=== PATIENT | female | born 1980 | race Caucasian/White ===

== ENCOUNTER 2016-12-17 10:52 | Observation (INO) | payer OTHER ==
[~2016-12-17] VITALS: Ht 162.6 cm; Wt 59.5 kg
[2016-12-17] MEDS ORDERED: SOD CHLORIDE 0.9% 1,000 ML IV STA (14:32)
[2016-12-17 14:51] LABS: ADD SCAN DIFF NO
[2016-12-17 14:54] LABS: BASOPHILS % 0.4 % (0.0-2.0); HEMATOCRIT 35.9 % (37.0-47.0); HEMOGLOBIN 10.9 g/dl (12.0-16.0); LYMPHOCYTES # 2.2 10^3/ul (0.8-2.9); LYMPHOCYTES % 20.4 % (15.0-51.0); MEAN CORPUSCULAR HEMOGLOBIN 25.9 pg (29.0-33.0); MEAN CORPUSCULAR HGB CONC 30.4 g/dl (32.0-37.0); MEAN CORPUSCULAR VOLUME 85.3 fl (82.0-101.0); MEAN PLATELET VOLUME 8.9 fl (7.4-10.4); MONOCYTE # 0.5 10^3/ul (0.3-0.9); MONOCYTES % 4.9 % (0.0-11.0); NEUTROPHIL # 7.8 10^3/ul (1.6-7.5); NEUTROPHILS % 73.9 % (39.0-77.0); PLATELET COUNT 396 10^3/UL (140-415); RED BLOOD COUNT 4.21 10^6/ul (4.20-5.40); RED CELL DISTRIBUTION WIDTH 14.6 % (11.5-14.5); WHITE BLOOD COUNT 10.6 10^3/ul (4.8-10.8)
--- NOTE | 2016-12-17 15:02 | RADRPT ---
PROCEDURE: XR Chest. CLINICAL INDICATION: Syncope. TECHNIQUE: PA and Lateral views of the chest were obtained. COMPARISON: No. FINDINGS: The soft tissues are normal. The bony elements are normal. The heart, cardiomediastinal silhouette and hilar structures are normal. The pulmonary vasculature is normal. There is a left-sided aorta. The lungs are clear. The costophrenic angles are normal. IMPRESSION: 1. Normal chest x-ray. RPTAT:AAJJ Physician Amita Date Time Electronically viewed and signed by Brad Ochoa Physician on 12/17/2016 15:02 HEATHER/
[2016-12-17 15:03] LABS: CHLORIDE 103 mmol/L (97-110)
[2016-12-17 15:04] LABS: INR 1.01; POTASSIUM 4.4 mmol/L (3.5-5.1); PROTIME 13.3 Sec (12.2-14.2); SODIUM 140 mmol/L (135-144)
[2016-12-17 15:05] LABS: PARTIAL THROMBOPLASTIN TIME 25.9 Sec (25.0-35.0)
--- NOTE | 2016-12-17 15:05 | RADRPT ---
PROCEDURE: CT Brain without contrast. CLINICAL INDICATION: Patient experiencing Syncope. TECHNIQUE: A CT of the brain was performed on a multi-slice CT scanner utilizing axial imaging fro m the skull base through the vertex without IV contrast. Multiplanar reformatted images were made. Images were reviewed on a PACS workstation. The CTDIvol is 45.01 mGy and the DLP is 630.2 mGycm. One or more of the following post reduction techniques were used: Automated exposure control. Adjustment of the mA and/or kV according to patient's size. Use of iterative reconstruction technique. COMPARISON: None FINDINGS: The sulcal gyral pattern is unremarkable without evidence of effacement. The perea-white matter diff erentiation is intact. No masses, edema or shift is identified. There are no intraparenchymal or extraaxial fluid collecti ons. The visualized paranasal sinuses and mastoid air cells are well-aerated. The skull base and calvari um are intact. IMPRESSION: No acute intracranial abnormalities are identified. RPTAT:AAJJ Physician Ash Date Time Electronically viewed and signed by Physician Ash on 12/17/2016 15:05 ELY/
[2016-12-17 15:06] LABS: ANION GAP 17 (8-16); CARBON DIOXIDE 24 mmol/L (21-31); CREATININE 0.54 mg/dl (0.44-1.00)
[2016-12-17 15:07] LABS: BLOOD UREA NITROGEN 11 mg/dl (7-20); CALCIUM 9.8 mg/dl (8.4-10.2); GLUCOSE 89 mg/dl (70-220)
[2016-12-17 15:10] LABS: D-DIMER < 220.00 ng/ml (<460)
[2016-12-17 15:27] LABS: TROPONIN-I < 0.012 ng/ml (0.00-0.12)
[2016-12-17] MEDS ORDERED: ASPIRIN 81 MG TAB PO ONE (15:30)
--- NOTE | 2016-12-17 16:06 | ERA ---
ER Documentation Chief Complaint Date/Time DATE: 12/17/16 TIME: 16:03 Chief Complaint FAINTED 3-TIMES YESTERDAY. C/O CP & HEAD ACHE. HPI 36-year-old female no past medical history who presents the emergency room with syncope. The patient gives a prolonged history that appears on Sunday at 1 AM she had 3 [id number] episodes of syncope. She states that she got up from the table dinner went to the bathroom. She started to feel lightheaded and then woke up on the ground. Since then she has been having a dull throbbing headache. She denies a prodrome of headache, no sudden onset of headache and this is not the worst headache of her life. Shortly after the patient was walking with her friend and again had a prodrome and had a syncopal episode. Again shortly after that when she had a third episode of syncope. The patient refused to be evaluated at that time. She denies any alcohol abuse, she denies alcohol intoxication or any drug abuse. The patient also describes chest pain. She describes it as pressure-like and squeezing for approximately 3-7 days. She denies exertional symptoms, no pleuritic pain, no back pain. ROS All systems reviewed and are negative except as per history of present illness. Medications Home Meds No Active Prescriptions or Reported Meds Allergies Allergies: Coded Allergies: No Known Allergy (Unverified , 12/17/16) PMhx/Soc History of Surgery: No Anesthesia Reaction: No Hx Neurological Disorder: No Hx Respiratory Disorders: No Hx Cardiac Disorders: No Hx Psychiatric Problems: No Hx Miscellaneous Medical Probl: No Hx Alcohol Use: No Hx Substance Use: No Hx Tobacco Use: No Smoking Status: Never smoker FmHx Family History: No diabetes Physical Exam Vitals Vital Signs Date Time Temp Pulse Resp B/P Pulse Ox O2 Delivery O2 Flow Rate FiO2 12/17/16 14:30 76 13 130/85 100 Room Air 12/17/16 11:08 98.6 74 16 132/86 99 Physical Exam General: Well developed, well nourished, no acute distress Head: Normocephalic, atraumatic. Eyes: Pupils equally reactive, EOM intact ENT: Moist mucous membranes Neck: Supple, no lymphadenopathy Respiratory: Lungs clear bilaterally, no distress Cardiovascular: RRR, no murmurs, rubs, or gallops Abdominal: Soft, non-tender, non-distended, no peritoneal signs : Deferred MSK: No edema, no unilateral swelling, 5/5 strength, no pulse deficits Neurologic: Alert and oriented, moving all extremities, normal speech, no focal weakness, no cerebellar signs Skin: No rash Psych: Normal mood Result Diagram: 12/17/16 1445 12/17/16 1445 Results 24 hrs Laboratory Tests Test 12/17/16 14:43 12/17/16 14:45 Bedside Glucose 82mg/dL White Blood Count 10.610^3/ul Red Blood Count 4.2110^6/ul Hemoglobin 10.9g/dl Hematocrit 35.9% Mean Corpuscular Volume 85.3fl Mean Corpuscular Hemoglobin 25.9pg Mean Corpuscular Hemoglobin Concent 30.4g/dl Red Cell Distribution Width 14.6% Platelet Count 78601^3/UL Mean Platelet Volume 8.9fl Neutrophils % 73.9% Lymphocytes % 20.4% Monocytes % 4.9% Eosinophils % 0.0% Basophils % 0.4% Nucleated Red Blood Cells % 0.0/100WBC Neutrophils # 7.810^3/ul Lymphocytes # 2.210^3/ul Monocytes # 0.510^3/ul Eosinophils # 0.010^3/ul Basophils # 0.010^3/ul Nucleated Red Blood Cells # 0.010^3/ul Prothrombin Time 13.3Sec Prothrombin Time Ratio 1.0 INR International Normalized Ratio 1.01 Activated Partial Thromboplast Time 25.9Sec D-Dimer < 220.00ng/ml D-Dimer Comment Sodium Level 140mmol/L Potassium Level 4.4mmol/L Chloride Level 103mmol/L Carbon Dioxide Level 24mmol/L Anion Gap 17 Blood Urea Nitrogen 11mg/dl Creatinine 0.54mg/dl Glucose Level 89mg/dl Calcium Level 9.8mg/dl Troponin I < 0.012ng/ml Serum HCG, Qualitative NEGATIVE Ethyl Alcohol Level < 10.0mg/dl Current Medications Medications (Trade) Dose Ordered Sig/Toby Route PRN Reason Start Time Stop Time Status Last Admin Dose Admin Sodium Chloride (NS) 1,000 ml @ 1,000 mls/hr Q1H STAT IV 12/17/16 14:32 12/17/16 15:31 DC 12/17/16 15:22 Aspirin (Aspirin) 324 mg ONCE ONCE PO 12/17/16 15:30 12/17/16 15:44 DC 12/17/16 15:58 Ondansetron HCl (Zofran Inj) 4 mg ER BRIDGE PRN IV NAUSEA AND/OR VOMITING 12/17/16 17:00 12/18/16 16:59 Acetaminophen 650 mg 650 mg ER BRIDGE PRN PO MILD PAIN/FEVER 12/17/16 17:00 12/18/16 16:59 Sodium Chloride (NS) 1,000 ml @ 100 mls/hr Q10H IV 12/17/16 17:02 UNV IV Flush (NS 3 ml) 3 ml PER PROTOCOL IV 12/17/16 17:30 UNV Ondansetron HCl (Zofran Inj) 4 mg Q6H PRN IV NAUSEA AND/OR VOMITING 12/17/16 17:30 UNV Aspirin (Aspirin) 81 mg DAILY PO 12/18/16 09:00 12/18/16 09:00 DC Acetaminophen (Tylenol Tab) 650 mg Q6H PRN PO PAIN LEVEL 1-3 OR FEVER 12/17/16 17:30 UNV Docusate Sodium (Colace) 100 mg Q12H PRN PO CONSTIPATION 12/17/16 17:30 UNV Magnesium Hydroxide (Milk Of Mag) 30 ml DAILY PRN PO CONSTIPATION 12/17/16 17:30 UNV Bisacodyl (Dulcolax Supp) 10 mg DAILY PRN AR CONSTIPATION 12/17/16 17:30 UNV Famotidine (Pepcid) 20 mg Q12 PO 12/17/16 21:00 UNV Enoxaparin Sodium (Lovenox) 40 mg DAILY SC 12/18/16 09:00 UNV Procedures/MDM EKG, MONITORS, & DIAGNOSTIC IMAGING: EKG: I reviewed and interpreted a 12-lead EKG. Rhythm: Normal sinus rhythm Ectopy: None Intervals: No abnormalities ST segments: No elevations or depressions T waves: No contiguous inversions Chest x-ray: I reviewed and interpreted a 1 view of the chest Mediastinum: No enlargement Cardiac silhouette: No cardiomegaly Airspace: Clear lung farrell bilaterally without evidence of pneumothorax Bones: No evidence of fracture CT brain: No acute process per radiology read LAB INTERPRETATION: Negative troponin, negative d-dimer, negative ECG MEDICAL DECISION MAKING: The patient presents with an episode of 3 back to back to back episodes of syncope. The patient is a somewhat limited historian. She does have a headache and chest pain. Her headache appears to have started after these episodes possibly related to head injury or trauma. She did not describe a prodrome of headache. She has had greater than 24 hours of symptoms. I do not believe her symptoms are consistent with subarachnoid hemorrhage. This is not the worst headache of her life and she has a nonfocal neurologic examination. I do not believe that lumbar puncture is necessary at this time. The patient also reports chest pain of unclear etiology. Consider possible ACS versus arrhythmia versus reflux. Low concern for dissection. The patient meets low risk criteria based on heart score as well as Wells criteria. D-dimer will be appropriate. ER COURSE: The patient's d-dimer is negative hCG is negative troponin is negative. She was given aspirin. The patient continues to be well-appearing. However, my concern is that the patient has had recurrent episodes of syncope. This could raise the concern for possible arrhythmia. Also consider possible orthostasis or nonspecific vasovagal syncope however I do believe that inpatient hospitalization, telemetry monitoring and echocardiogram would be appropriate. Patient verbalizes understanding. Aspirin provided after negative CT brain. I kept the patient and/or family informed of laboratory and diagnostic imaging results throughout the emergency room course. DISPOSITION PLAN: Telemetry admission for management of recurrent syncope CONSULTATION: Accepting care team and consultations: I discussed the current laboratory data, diagnostic imaging and emergency care provided. Admitting team: Dr. Chandra Admitting team indication: Insurance directed Departure Diagnosis: Primary Impression: Syncope Qualified Code: R55 - Syncope, unspecified syncope type Additional Impressions: Chest pain Qualified Code: R07.9 - Chest pain, unspecified type Anemia Qualified Code: D64.9 - Anemia, unspecified type Closed head injury Qualified Code: S09.90XA - Closed head injury, initial encounter Condition: Stable ZENON VERDE MD Dec 17, 2016 16:06
[2016-12-17] MEDS ORDERED: ACETAMINOPHEN 325 MG TAB PO PRN ×2 (17:00→17:30)
[2016-12-17] MEDS ORDERED: ONDANSETRON 4 MG INJ IV PRN ×2 (17:00→17:30)
[2016-12-17 17:22] LABS: BARBITURATES Negative (NEGATIVE); BENZODIAZEPINES Negative (NEGATIVE); CANNABINOIDS Negative (NEGATIVE); COCAINE Negative (NEGATIVE); OPIATES Negative (NEGATIVE)
[2016-12-17] MEDS ORDERED: NACL 0.9% 3 ML SYG IV SCH (17:30)
[2016-12-17] MEDS ORDERED: MAGNESIUM HYDROXIDE 30ML CUP PO PRN (17:30)
[2016-12-17] MEDS ORDERED: DOCUSATE SODIUM 100 MG CAP PO PRN (17:30)
[2016-12-17] MEDS ORDERED: BISACODYL 10 MG SUPP PR PRN (17:30)
[2016-12-17] MEDS: SOD CHLORIDE 0.9% 1,000 ML IV SCH (18:43)
[2016-12-17 18:58] VITALS: BP_SYST 118; BP_SYST 119; BP_DIAS 72; BP_DIAS 75; BP_DIAS 79; PULSE 68; PULSE 72; PULSE 78; RESP 18
[2016-12-17 20:00] VITALS: BP 112/64; RESP 18
[2016-12-17 20:12] VITALS: PULSE 82
[2016-12-17] MEDS: FAMOTIDINE 20 MG TAB PO SCH (21:10)
[2016-12-17 21:49] VITALS: Ht 162.6 cm; Wt 59.5 kg
[2016-12-17 22:00] VITALS: BP_SYST 108; BP_SYST 118; BP_SYST 119; BP_DIAS 69; BP_DIAS 71; BP_DIAS 78; PULSE 86; PULSE 87; RESP 18
[2016-12-17 23:15] LABS: CREATINE KINASE 115 IU/L (23-200)
[2016-12-17 23:24] LABS: CK-MB 1.04 ng/ml (0.0-2.4)
[2016-12-17 23:38] VITALS: BP 97/48; PULSE 78
[2016-12-17 23:41] LABS: TROPONIN-I < 0.012 ng/ml (0.00-0.12)
[2016-12-18] VITALS (9 sets, daily range): BP systolic 97–121; BP diastolic 55–83; PULSE 62–79; RESP 20
[2016-12-18] MEDS: SOD CHLORIDE 0.9% 1,000 ML IV SCH ×2 (04:07→13:02)
[2016-12-18] MEDS ORDERED: ASPIRIN 81 MG TAB PO SCH (09:00)
[2016-12-18] MEDS ORDERED: ENOXAPARIN 40 MG/0.4 ML SYG SC SCH (09:00)
[2016-12-18] MEDS: FAMOTIDINE 20 MG TAB PO SCH ×2 (09:21→20:05)
--- NOTE | 2016-12-18 10:16 | RADRPT ---
PROCEDURE: US Lower extremity Venous. CLINICAL INDICATION: Lower extremity pain and swelling TECHNIQUE: Multiple sonographic images of the bilateral lower extremity deep venous system was obt ained utilizing grayscale, color-flow, compressive sonography and doppler imaging with augmentation. The images were reviewed on a PACS workstation. COMPARISON: None. FINDINGS: There is normal compressibility and flow within the bilateral common femoral, superficial femoral an d popliteal veins. Flow is seen in the posterior tibial and peroneal veins. IMPRESSION: No sonographic evidence for deep venous thrombosis. RPTAT: AA .Jameson Azevedo MD, MD Date Time Electronically viewed and signed by .Jameson Azevedo MD, MD on 12/18/2016 10:16 .P/
[2016-12-18 10:32] LABS: ADD SCAN DIFF NO
[2016-12-18 10:39] LABS: BASOPHILS % 0.4 % (0.0-2.0); EOSINOPHILS # 0.1 10^3/ul (0.0-0.5); EOSINOPHILS % 1.2 % (0.0-7.0); HEMOGLOBIN 9.6 g/dl (12.0-16.0); LYMPHOCYTES # 2.2 10^3/ul (0.8-2.9); LYMPHOCYTES % 43.7 % (15.0-51.0); MEAN CORPUSCULAR VOLUME 86.7 fl (82.0-101.0); MEAN PLATELET VOLUME 9.1 fl (7.4-10.4); MONOCYTE # 0.4 10^3/ul (0.3-0.9); NEUTROPHIL # 2.3 10^3/ul (1.6-7.5); NEUTROPHILS % 46.5 % (39.0-77.0); PLATELET COUNT 348 10^3/UL (140-415); RED BLOOD COUNT 3.69 10^6/ul (4.20-5.40); RED CELL DISTRIBUTION WIDTH 14.6 % (11.5-14.5)
[2016-12-18 10:45] LABS: ALBUMIN 3.5 g/dl (3.3-4.9)
[2016-12-18 10:46] LABS: POTASSIUM 3.7 mmol/L (3.5-5.1)
[2016-12-18 10:48] LABS: ALBUMIN/GLOBULIN RATIO 1.06; BILIRUBIN,INDIRECT 0.3 mg/dl (0-1.1); BILIRUBIN,TOTAL 0.3 mg/dl (0.2-1.3); CREATININE 0.53 mg/dl (0.44-1.00); TOTAL PROTEIN 6.8 g/dl (6.1-8.1)
[2016-12-18 10:49] LABS: CALCIUM 8.7 mg/dl (8.4-10.2); MAGNESIUM 1.9 mg/dl (1.7-2.5)
--- NOTE | 2016-12-18 11:01 | HP ---
DATE OF ADMISSION: 12/17/2016 CHIEF COMPLAINT ON ADMISSION: Syncopal episodes. HISTORY OF PRESENT ILLNESS: This is a 36-year-old female with apparently past medical history of sy ncopal episodes 10 years ago for which she was worked up. At that time she was also having facial n umbness. She was diagnosed with some cervical spine osteochondritis and got treatment as an outpati ent. This was all done as an outpatient. She also went to [facility] for 20 days for [facility] and she claims that by 2010 her symptoms were resolved. For the past 6 years she has been doi ng well, asymptomatic, not taking any herbal medications. She does not do any drugs and has not had any episodes. The day prior to admission, the patient had 3 syncopal episodes. She describes it a s episodes where she feels some chest pressure, feels weak all over, then everything is blacked out. She is out for 1 minute wakes up still feels weak, a little woozy, but able to manage. She had a second episode 3 minutes after the first one, also lasted for a minute. At that time still did not seek medical attention and a few minutes later, maybe 10 to 15 minutes after the second episode she had a third episode again very similar. She felt some pressure, dizziness and shaking all over her body she is reporting, but conscious because she loses consciousness. When she wakes up she is full y oriented and cognition of what is going on around her. With the third episode EMS was called and the patient was evaluated and she reports that her blood sugar, her blood pressures were within norm al. With the third episode she also had an episode of nausea. According to a friend who witnessed t he episode she did vomit. The patient refused to come to the hospital after the third one she actua lly stayed home spent the night and came to [facility] the next day. During the period she was at home after the third syncopal episode she was feeling weak and some chest pressure throughou t also a headache. She reports that her left upper extremity was slightly numb along with the chest pressure. She denies any gastrointestinal or genitourinary symptoms. There is no reported bladder or bowel incontinence. The patient reports that again approximately 10 years ago she had more or l ess similar episodes but at that time she was also having head numbness and facial numbness and was fully evaluated, looks by neurology based on the report she brought in. The only diagnosis at that time was again cervical spine osteochondritis with possible neuralgia or radiculopathy. Based on th at history a MRI of the cervical spine is pending. Also, given her chest pressure, she is reporting . Her cardiac enzymes have been negative. EKG is mostly unremarkable, normal sinus rhythm. 2D ech ocardiogram is pending and she may need event monitoring as an outpatient depending on the echocardi ogram results. In the emergency department chest x-ray did not show any cardiomegaly and was withi n normal and CAT scan of the brain was also normal. D-dimer was normal and vital signs have remaine d stable. Her blood pressure does vary but her orthostatic vital signs have been within normal with systolic in the one teens. She is also noted to have chronic lower extremity edema she reports for the past year. Therefore, Dopplers of the lower extremity are being ordered but again her D-dimers have been negative. ALLERGIES: NO KNOWN ALLERGIES. 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 PAST SURGICAL HISTORY: None. SOCIAL HISTORY: The patient denies any alcohol or tobacco use. No herbal medicine use anymore for the past 6 years at least and no drug use. OUTPATIENT MEDICATIONS: None. REVIEW OF SYSTEMS: As per HPI. Of note, the patient also reports that 10 days ago she had episodes of right upper extremity numbness up to her arm, but not past her elbow. PHYSICAL EXAMINATION: VITAL SIGNS: Temperature is 98.4, heart rate of 67, sinus rhythm, respiratory rate 20. She is satt ing 100% on room air, blood pressure 97/55, has been varying between 97 systolic up to 106 to 118 sy stolic. GENERAL: She is alert and oriented x4. She is acute distress currently. HEENT: Pupils are equally round and reactive to light. Extraocular muscles are intact. Anicteric sclerae. NECK: No JVD, no thyromegaly noted. HEART: Regular rate and rhythm. No murmur, rubs, or gallops. LUNGS: Clear to auscultation bilaterally. ABDOMEN: Soft, nontender, nondistended. Bowel sounds are present. EXTREMITIES: She has nonpitting edema approximately +1 bilateral lower extremities equally. NEUROLOGIC: Grossly intact currently. Muscle strength is 5/5 throughout. Sensation is intact. Cr anial nerves are intact II through XII. Her gait is not tested as she is lying in bed, but no prona tor drift, stable neurological exam. LABORATORY DATA: White blood cell count 10.6, hemoglobin 10.9, hematocrit 35.9, platelet count of 3 96. Chemistry with a sodium of 140, potassium 4.4, chloride 103, bicarbonate 24, BUN 11, creatinine 0.54, glucose of 89, calcium 9.8. Troponins are less than 0.012 eight hours apart within normal. TSH 1.14. Free T4 1.45. test is negative. PT 13.3, INR 1.01. D-dimer less than 220. U rine tox screen is negative. Alcohol is less than 10. EKG again shows normal sinus rhythm, no acute ST or T-wave abnormalities. A 2D echocardiogram is pe nding. RADIOLOGICAL DATA: Chest x-ray shows a normal chest x-ray: No signs of cardiomegaly. Lungs are cl ear. CAT scan of the brain shows no intracranial abnormalities. ASSESSMENT AND PLAN: This is a 36-year-old female with: 1. Syncopal episode x3 also described this ongoing chest pressure. She has been feeling on and off numbness of either upper extremities. Cardiac workup is negative so far. A 2D echocardiogram is p ending and will discuss with cardiology as the patient may need event monitoring as an outpatient if the echocardiogram does not show any significant abnormalities. Her cervical spine MRI is pending. Depending on the findings she may need further referral and finally will also referral to neurolog y to see if the patient has any episodes of partial seizures or subclinical seizures or any other ty pe of seizure that would be explaining her episodes. 2. Cervical spine osteochondritis. We will check an MRI to rule out any further advance of the dise ase or radiculopathy developing. 3. Lower extremity edema. We will check Dopplers of the lower extremity, but likely this is second faby to poor venous return. 4. Prophylaxis. Lovenox for DVT prophylaxis. Pepcid for GI prophylaxis. DISPOSITION: MRI of the cervical spine pending. A 2-D echocardiogram reading pending and Doppler o f the lower extremity pending. Depending on results, the patient may need further referrals to card iology, neurology, possibly neurosurgery depending on the cervical spine findings. Dictated By: MARLENE NEWTON/HEMA Conf#: [id number] DID#: [id number]
--- NOTE | 2016-12-18 15:27 | RADRPT ---
Echocardiogram Report Patient Name: YANY BARLOW Gender: Female Date: 1980 Study Date: 18-Dec-2016 Composition Siding Worker: Jose Perdomo [facility] Location: [id number] Ref. Physician: JORDAN QUIROS Quality: Good Procedures: Transthoracic echocardiogram with complete 2D, M-Mode, and doppler examination. Indications: Syncope. 2D/M Mode Doppler Measurement Value Normal Ranges Measurement Value Normal Ranges LVIDd 2D 4.5 3.5 - 5.6 cm AV Peak Seferino 1.6 m/sec LVIDs 2D 2.7 2.1 - 4.1 cm AV Peak PG 10.0 mmHg FS 2D 40.4 % LVOT Peak Seferino 1.0 m/sec LVPWd 2D 0.9 0.6 - 1.1 cm LVOT Peak PG 4.0 mmHg IVSd 2D 0.9 0.6 - 1.1 cm MV E Peak Seferino 0.8 m/sec IVS/LVPW 2D 1.0 MV A Peak Seferino 0.6 m/sec AoR Diam 2D 2.6 2.0 - 3.7 cm MV E/A 1.4 LA/Ao 2D 1 0 - 1 MV Decel Time 120 msec EDV 2D 91.7 cm3 MV E/A 1.4 ESV 2D 19.5 cm3 TR Peak Seferino 2.4 m/sec LA Dimen 2D 2.8 2.3 - 4.0 cm TR Peak PG 23.0 mmHg RVSP 38.0 mmHg Findings Left Ventricle: Normal left ventricular systolic function. Normal left ventricular cavity size. Normal left ventricular wall thickness. Ejection fraction is visually estimated at 65 %. Tissue Doppler/Mitral Doppler indices are within normal limits. Right Ventricle: Normal right ventricular size. Normal right ventricular systolic function. Left Atrium: The left atrium is normal in size. Right Atrium: The right atrium is normal in size. Mitral Valve: Normal appearance and function of the mitral valve with trace physiologic regurgitation. Aortic Valve: Normal appearance of the aortic valve. No significant aortic stenosis or insufficiency. Tricuspid Valve: Normal appearance of the tricuspid valve. Estimated peak PA systolic pressure 38 mmHg. There is mild tricuspid regurgitation. Pulmonic Valve: Normal pulmonic valve appearance. Pericardium: Normal pericardium with no significant pericardial effusion. Aorta: Normal aortic root. IVC: Dilated IVC without respiratory collapse consistent with elevated right atrial pressure. Conclusions Normal left ventricular systolic function. Normal left ventricular cavity size. Normal left ventricular wall thickness. Ejection fraction is visually estimated at 65 %. Tissue Doppler/Mitral Doppler indices are within normal limits. Normal right ventricular size. Normal right ventricular systolic function. The left atrium is normal in size. The right atrium is normal in size. Estimated peak PA systolic pressure 38 mmHg. There is mild tricuspid regurgitation. No significant valvular stenosis or regurgitation seen of remaining visualized valves. Dilated IVC without respiratory collapse consistent with elevated right atrial pressure. Normal pericardium with no significant pericardial effusion. Electronically Signed By: Kelechi Mejía 18-Dec-2016 15:27:19 -0700 Patient Name: YANY BARLOW Study Date: 18-Dec-2016 [id number]
--- NOTE | 2016-12-18 16:12 | RADRPT ---
PROCEDURE: MR cervical spine without and with contrast CLINICAL INDICATION: Upper extremity numbness. Syncope TECHNIQUE: An MRI of the cervical spine was performed utilizing sagittal T1 weighted, sagittal T2 weighted, sagittal STIR, axial T2-weighted balance fast field echo and axial GRE. Following the une ventful intravenous injection of 10 ml Magnevist, postcontrast sagittal and axial T1 images are obta ined COMPARISON: None available. FINDINGS: Vertebral bodies: There is preservation of the cervical lordosis, signal intensity and stature at e very level. Cervical spinal cord: Normal in signal intensity and caliber at every level. The craniocervical ju nction region is intact. No abnormal foci of enhancement are demonstrated C2-3: The disk is normal in height. No disk bulge or herniation is identified. The central canal a nd foramina are patent. No abnormal enhancement is present. C3-4: The disk is normal in height. No disk bulge or herniation is identified. The central canal a nd foramina are patent. No abnormal enhancement is present. C4-5: The disk is normal in height. No disk bulge or herniation is identified. The central canal a nd foramina are patent. No abnormal enhancement is present. C5-6: Subtle disk signal loss without loss of disk stature and suggestion of a tiny posterior annula r fissure with no more than 1 mm of annular disk bulging but no focal protrusion. No disk bulge or herniation is identified. The central canal and foramina are patent. No abnormal enhancement is pre sent. C6-7: The disk is normal in height. No disk bulge or herniation is identified. The central canal a nd foramina are patent. No abnormal enhancement is present. C7-T1: The disk is normal in height. No disk bulge or herniation is identified. The central canal and foramina are patent. No abnormal enhancement is present. RPTAT:HJJR IMPRESSION: 1. Subtle disk signal loss and suspected with tiny posterior annular fissure at C5-6 with trace dis k bulging but no protrusion or central stenosis. 2. Remainder of the examination is unremarkable. 2. No pathologic enhancement is appreciated. Physician Tamika Date Time Electronically viewed and signed by Physician Tamika on 12/18/2016 16:12 JR/
[2016-12-18] MEDS ORDERED: IOHEXOL 14.3 MG(I)/ML (ADULT) BTL PO ONE (17:00)
--- NOTE | 2016-12-18 17:08 | PDOCDIS ---
Discharge Instructions CONDITION Patient Condition: Stable HOME CARE INSTRUCTIONS: Special Diet: Reg ACTIVITY: Activity Restrictions: No Restrictions FOLLOW UP/APPOINTMENTS Appointments Referral to [employer] [facility]FR[facility] through [facility] regarding complex predominantly solid 7.5 x 6.6 by 6 cm left ovarian mass. Referral to Neurology as outpatient for syncope of unclear etiology Referral to Cardiology outpatient for syncope of unclear etiology. May need outpatient event monitoring Follow up with PCP within 1 week MARLENE QUIROS Dec 18, 2016 17:08
[2016-12-18] MEDS ORDERED: IOHEXOL 300MG/ML 150 ML BTL ONE (18:25)
[2016-12-18] MEDS ORDERED: SOD CHLORIDE 0.9% 100 ML ONE (18:25)
--- NOTE | 2016-12-18 19:21 | RADRPT ---
PROCEDURE: CT of the abdomen and pelvis CLINICAL INDICATION: Abdominal pain TECHNIQUE: The study was performed utilizing a [employer] 64-slice multidetector CT scanner. Dir ect spiral axial sections were obtained through the abdomen and pelvis with intravenous contrast. Af ter administration of 100cc of Omnipaque-300, postcontrast images were obtained. Coronal and sagitt al reformatted images were performed. The CTDI vol is 6.74 mGy and the DLP is 330.16 mGy-cm. The im ages were reviewed on a PACS workstation. COMPARISON: No prior studies are available for comparison. FINDINGS: CT abdomen: The lung bases are clear. The heart is not enlarged. No pericardial effusion is seen. The liver is normal in size and contour. Focal hepatic steatosis is seen adjacent to the falciform l igament. Otherwise, no focal liver lesions or intrahepatic biliary dilatation is seen. The gallbladd er is normal. No common bile duct dilatation is seen. The spleen, pancreas, and adrenal glands are unremarkable in appearance. The kidneys are normal in size and contour enhance normally. No evidenc e of hydronephrosis or nephrolithiasis is seen. The stomach is unremarkable. The small and large bowel are unremarkable in course and caliber. A n ormal appendix is identified. No enlarged lymph nodes or fluid collections are seen. The aorta is n ormal in caliber. CT pelvis: A complex left adnexal mass is seen which demonstrates on cystic components and measures approximately 7.4 x 6.1 x 5.6 cm in size. No pelvic adenopathy, or focal fluid collection is seen. There is no free fluid. The urinary bladder is normal. The remaining pelvic organs are unremarkab le. No osseous lesions are seen. IMPRESSION: Large complex left adnexal mass as described above. Further evaluation with pelvic ultrasound is re commended. RPTAT: HPNM Physician Leisa Date Time Electronically viewed and signed by Physician Leisa on 12/18/2016 19:21 /
--- NOTE | 2016-12-18 21:10 | RADRPT ---
PROCEDURE: US Pelvis. CLINICAL INDICATION: VB TECHNIQUE: Multiple sonographic images of the pelvis were obtained utilizing a transabdominal and endovaginal technique. The images were reviewed on a PACS workstation. COMPARISON: None. FINDINGS: The uterus is visualized and measures 10.2 cm sagittal by 4.4 cm AP by 5.8 cm transverse.. The endom etrial echo complex is normal and measures 7.8 mm. There is no evidence for free fluid. The right ov faby has a normal echotexture and measures 2.9 x 1.3 by 1.3 cm. There is normal blood flow to the ri ght ovary. . There is a left ovarian complex predominantly solid mass with internal blood flow measu ring 7.5 x 6.6 x 6 cm.. No adnexal masses are noted. No free fluid is noted in the pelvis. IMPRESSION: 1. Complex predominantly solid 7.5 x 6.6 by 6 cm left ovarian mass. 2. Otherwise unremarkable pelvic not of the sonogram. RPTAT:AAJJ Physician Amita Date Time Electronically viewed and signed by Physician Amita on 12/18/2016 21:10 /
== END 2016-12-18 22:50 | disposition home or self-care (01) ==
LOC: E/R 10:52 → MS4 16:56
PROVIDERS: ADMIT Internal Medicine; ATTEND Internal Medicine
DX: R55 Syncope and collapse (principal); R07.9 Chest pain, unspecified; D64.9 Anemia, unspecified; M93.98 Osteochondropathy, unspecified other
CPT/HCPCS: 70450; 71010; 72156; 74177; 76856; 80048; 80053; 80306; 80307; 82550; 82553; 82962; 83735; 84439; 84443; 84484; 84703; 85025; 85378; 85610; 85730; 86304; 93005; 93306; 93970; J1650; J7030; Q9967; Z7500; Z7610; 96372; G0378